=== PATIENT | female | born 1985 | race Caucasian/White ===

== ENCOUNTER 2018-02-06 01:35 | Emergency (ER) | payer OTHER ==
[~2018-02-06] VITALS: Ht 154.9 cm; Wt 49.9 kg
--- NOTE | 2018-02-06 01:41 | Emergency Room Report ---
History of Present Illness General Chief Complaint: Behavioral Complaint Source: Patient, EMS Present Illness HPI This is a 32-year-old female brought in by EMS for altered mental status. She was screaming and being very agitated front of her apartment building. She admitted to using Adderall and cocaine. No suicidal thoughts or homicidal thought. No hallucination. History is limited because of her agitation. Allergies: Coded Allergies: No Known Allergies (Unverified , 02/06/18) Patient History Past Medical History: see triage record, old chart reviewed Past Surgical History: other Pertinent Family History: none Social History: Reports: smoking, alcohol use, drug use Last Menstrual Period: unknown Now: No Immunizations: other Reviewed Nursing Documentation: PMH: Agreed; PSxH: Agreed Nursing Documentation-PMH Past Medical History Deferred: Pt Cognitively Impaired Review of Systems Eye: Denies: eye pain, blurred vision ENT: Denies: ear pain, nose congestion, throat swelling Respiratory: Denies: cough, shortness of breath Cardiovascular: Denies: chest pain, palpitations Gastrointestinal: Denies: abdominal pain, diarrhea, nausea, vomiting Musculoskeletal: Denies: back pain, joint pain Skin: Denies: rash Neurological: Denies: headache, numbness Endocrine: Denies: increased thirst, increased urine Hematologic/Lymphatic: Denies: easy bruising All Other Systems: negative except mentioned in HPI Physical Exam Vital Signs Date Time Temp Pulse Resp B/P (MAP) Pulse Ox O2 Delivery O2 Flow Rate FiO2 02/06/18 01:35 100.8 166 22 126/78 99 Room Air 100.8 vitals with tachycardia and fever Sp02 EP Interpretation: reviewed, normal General Appearance: well appearing, no apparent distress, alert, other - agitated. Screaming profanity Head: normocephalic, atraumatic Eyes: bilateral eye PERRL, bilateral eye EOMI ENT: hearing grossly normal, normal pharynx Neck: full range of motion, supple, no meningismus Respiratory: chest non-tender, lungs clear, normal breath sounds Cardiovascular #1: regular rate, rhythm, no murmur Gastrointestinal: normal bowel sounds, non tender, no mass, no organomegaly, no bruit, non-distended Musculoskeletal: back normal, normal range of motion Neurologic: alert, oriented x3, grossly normal Psychiatric: mood/affect normal Skin: warm/dry Medical Decision Making Diagnostic Impression: Primary Impression: Acute drug overdose Qualified Codes: T50.901A - Poisoning by unspecified drugs, medicaments and biological substances, accidental (unintentional), initial encounter Additional Impressions: Cocaine abuse Agitation Psychosis Qualified Codes: F23 - Brief psychotic disorder ER Course Patient presents with severe agitation and psychosis from drug overdose and intoxication. She had to be sedated. She slept for several hours and now awake. No suicidal thoughts or homicidal thought. No criteria for 5150. This patient is a chronic risk of self injury due to poor impulse control, limited coping skills, and judgment intermittently impaired by intoxication. 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 Hospitalization would likely attenuate risk of self-harm only during correction period, without lasting risk reduction. Serious self-harm , while possible, would likely be inadvertent, and because of impulsivity, and foreseeable. For these reasons, I do not believe hospitalization would provide meaningful reduction in risk of self-harm. Lab Results Impression labs unremarkable Last Vital Signs Date Time Temp Pulse Resp B/P (MAP) Pulse Ox O2 Delivery O2 Flow Rate FiO2 02/06/18 01:35 100.8 166 22 126/78 99 Room Air 100.8 Status: improved Disposition: HOME, SELF-CARE Condition: Stable Patient Instructions: Self-Destructive Behavior Additional Instructions: Stop using drugs. Follow-up with your in 7 days. go to rehabilitation. Return if worse. DANIEL FNA M.D. Feb 06, 2018 01:41
[2018-02-06 01:45] VITALS: BP 79/36
[2018-02-06] MEDS ORDERED: Haloperidol 5mg/ml Inj IM ONE ×3 (01:45→02:00)
[2018-02-06] MEDS ORDERED: LORazepam Inj 2mg/ml 1ml IV ONE (01:45)
[2018-02-06 02:33] LABS: BASOPHILS % (AUTO) 0.9 % (0.0-2.0); EOSINOPHILS % (AUTO) 1.2 % (0.0-3.0); HEMATOCRIT 37.9 % (37.0-47.0); HEMOGLOBIN 12.8 G/DL (12.0-16.0); LYMPHOCYTES % (AUTO) 26.5 % (20.0-45.0); MEAN CORPUSCULAR VOLUME 96 FL (80-99); MONOCYTES % (AUTO) 10.5 % (1.0-10.0); NEUTROPHILS % (AUTO) 60.9 % (45.0-75.0); PLATELET COUNT 284 K/UL (150-450); RED BLOOD COUNT 3.96 M/UL (4.20-5.40); WHITE BLOOD COUNT 12.4 K/UL (4.8-10.8)
[2018-02-06 02:34] LABS: BILIRUBIN, URINE NEGATIVE (NEGATIVE); COLOR,URINE PALE YELLOW; GLUCOSE, URINE (UA) NEGATIVE (NEGATIVE); KETONES,URINE NEGATIVE (NEGATIVE); LEUKOCYTE ESTERASE ,URINE NEGATIVE (NEGATIVE); NITRITE,URINE NEGATIVE (NEGATIVE); PH,URINE 6 (4.5-8.0); PROTEIN,URINE 3+ (NEGATIVE); UROBILINOGEN,URINE NORMAL MG/DL (0.0-1.0)
[2018-02-06 02:37] LABS: ANION GAP 18 mmol/L (5-15); BLOOD UREA NITROGEN 11 mg/dL (7-18); CALCIUM 9.2 MG/DL (8.5-10.1); CARBON DIOXIDE 24 MMOL/L (21-32); CHLORIDE 103 MMOL/L (98-107); CREATININE 1.4 MG/DL (0.55-1.30); POTASSIUM 4.2 MMOL/L (3.5-5.1); SODIUM 144 MMOL/L (136-145)
[2018-02-06 02:40] LABS: APPEARANCE,URINE SLIGHTLY CLOUDY
[2018-02-06 02:50] LABS: CKMB 6.9 NG/ML (0.0-3.6); CREATINE KINASE 468 U/L (26-308)
[2018-02-06 03:00] VITALS: BP 95/50
[2018-02-06] MEDS ORDERED: cefTRIAXone 1 GM in NS 55 ML IVPB ONE (03:00)
[2018-02-06 04:00] VITALS: BP 114/87
[2018-02-06] MEDS ORDERED: UNOBMED (04:33)
[2018-02-06 05:50] VITALS: BP 105/64
[2018-02-06 07:15] VITALS: BP 116/76
[2018-02-06 08:45] VITALS: BP 116/76
== END 2018-02-06 08:46 | disposition home or self-care (01) ==
LOC: EDBD 01:35 → EMR 02:01
DX: T40.5X1A Poisoning by cocaine, accidental (unintentional), initial encounter (principal); T43.621A Poisoning by amphetamines, accidental (unintentional), initial encounter; Y92.9 Unspecified place or not applicable; R45.1 Restlessness and agitation; F29 Unspecified psychosis not due to a substance or known physiological condition
CPT/HCPCS: 36415; 80048; 80307; 81001; 81025; 82550; 82553; 85025; 87086; 96361; 96372; 96374; 96375; 99284; G0480; J0696; J1630; 80329